=== PATIENT | male | born 2000 | race Caucasian/White ===

== ENCOUNTER 2021-11-24 21:43 | Emergency (ER) | payer MEDICAID ==
[2021-11-24] MEDS ORDERED: Sodium Chloride 0.9% 1000 ML 1,000 ML IV STA (22:09)
[2021-11-24] MEDS ORDERED: Zofran 4 MG/2 ML VIAL ONE (22:16)
--- NOTE | 2021-11-24 22:16 | ERPHSYRPT ---
- History of Present Illness Time Seen by Provider: 11/24/21 21:48 Source: patient Exam Limitations: no limitations Patient Subjective Stated Complaint: pt states "I missed a step and fell down 4 carpet steps and hit my head." Triage Nursing Assessment: pt ambulates to bed by self, pt alert and oriented x3, pt c/o headache and L sided rib pain after recent fall, pt is unknown of LOC, pt denies any other pain, shortness of breath. pt has 3 in abrasion located on lower back Physician History: 21 years old male with history of cerebral palsy, seizure disorder presented in the ER with chief complaint of fall. Patient reports he tripped while coming downstairs and fell hitting his left side of his chest against the rail and head against multiple stairs. No loss of consciousness. This happened prior to arrival. He is complaining of left-sided dull aching to sharp pain with taking deep breath. No shortness of breath otherwise. No abdominal pain nausea or vomiting. No numbness tingling or focal weakness. No extremity injuries. Also report having seizure earlier this morning with soreness all over. Occurred: just prior to arrival Reason for Fall: tripped Injuries/Pain Location: head, chest Loss of Consciousness: no loss of consciousness Quality: sharpness Severity of Pain-Max: moderate Severity of Pain-Current: moderate Modifying Factors: Worsens With: movement Associated Symptoms (Fall): chest pain, headache, muscle spasms, No back pain, No extremity injury, No neck pain, No ringing in ears, No seizures, No shortness of breath, No trouble walking, No vomiting, No vision changes Allergies/Adverse Reactions: amphetamine [From Adderall] Allergy (Mild, Verified 11/24/21 22:10) dextroamphetamine [From Adderall] Allergy (Mild, Verified 11/24/21 22:10) diazepam [From Valium] Allergy (Verified 11/24/21 22:10) gluten Allergy (Verified 11/24/21 22:10) methylphenidate Allergy (Verified 11/24/21 22:10) naproxen Allergy (Verified 11/24/21 22:10) Penicillins Allergy (Verified 11/24/21 22:10) ranitidine Allergy (Verified 11/24/21 22:10) Hx Tetanus, Diphtheria Vaccination/Date Given: Yes Hx Influenza Vaccination/Date Given: No Hx Pneumococcal Vaccination/Date Given: No Immunizations Up to Date: Yes Travel Risk - International Travel Have you traveled outside of the country in past 3 weeks: No - Coronavirus Screening Are you exhibiting any of the following symptoms?: No Close contact with a COVID-19 positive Pt in past 14-21 Days: No - Vaccine Status Have you recieved a Covid-19 vaccination: No - Review of Systems Constitutional: No Symptoms Eyes: No Symptoms Ears, Nose, & Throat: No Symptoms Respiratory: No Symptoms Cardiac: Chest Pain Abdominal/Gastrointestinal: No Symptoms Genitourinary Symptoms: No Symptoms Musculoskeletal: Fall Skin: Skin Lesions Neurological: Headache Psychological: No Symptoms Endocrine: No Symptoms Hematologic/Lymphatic: No Symptoms Immunological/Allergic: No Symptoms - Past Medical History Pertinent Past Medical History: Yes Neurological History: Seizures ENT History: No Pertinent History Cardiac History: No Pertinent History Respiratory History: No Pertinent History Endocrine Medical History: No Pertinent History Musculoskeletal History: No Pertinent History GI Medical History: No Pertinent History History: No Pertinent History Psycho-Social History: Anxiety, Depression Male Reproductive Disorders: No Pertinent History Other Medical History: psorsis, celiac disease - Past Surgical History Past Surgical History: Yes Neuro Surgical History: No Pertinent History Cardiac: No Pertinent History Respiratory: No Pertinent History Gastrointestinal: No Pertinent History Genitourinary: No Pertinent History Musculoskeletal: No Pertinent History Male Surgical History: No Pertinent History Other Surgical History: tendon stretch, hamstring stretches - Social History Smoking Status: Never smoker Exposure to second hand smoke: No Drug Use: marijuana Patient Lives Alone: No - Nursing Vital Signs Nursing Vital Signs: Initial Vital Signs Temperature 99.5 F 11/24/21 21:57 Pulse Rate 77 11/24/21 21:57 Respiratory Rate 16 11/24/21 21:57 Blood Pressure 103/69 11/24/21 21:57 O2 Sat by Pulse Oximetry 98 11/24/21 21:57 Pain Scale Pain Intensity 3 - Dewitt Coma Score Best Eye Response (Chandana): (4) open spontaneously Best Verbal Response (Chandana): (5) oriented Best Motor Response (Chandana): (6) obeys commands Chandana Total: 15 - Physical Exam General Appearance: no apparent distress, alert Head Injury: no evidence of injury, tenderness (Mild occipital), No Morel's Sign, No contusions Eye Exam: PERRL/EOMI, eyes nml inspection ENT Exam: airway nml, No evidence of ENT injury, No dental injury Neck Exam: supple, trachea midline, full range of motion, normal alignment, normal inspection Respiratory/Chest Exam: chest tenderness (Left lateral. No crepitus.), normal breath sounds, No respiratory distress Cardiovascular Exam: normal heart sounds, regular rate/rhythm Gastrointestinal Exam: soft, normal bowel sounds, No tenderness, No guarding Back Exam: normal inspection, normal range of motion, other (Abrasion on the left lower) Extremity Exam: normal inspection, normal range of motion, capillary refill <3 sec, pelvis stable Neurologic Exam: alert, oriented x 3, cooperative, tenoner operator II-XII nml as tested, normal mood/affect, sensation nml, No motor deficits Skin Exam: normal color SpO2 Interpretation: normal SpO2: 98 O2 Delivery: Room Air Ordered Tests: Active Orders 24 hr Category Date Time Status IV Insertion STAT Care 11/24/21 22:09 Active CERVICAL SPINE WO CONTRAST [CT] Stat Exams 11/24/21 22:09 Taken CHEST WITHOUT CONTRAST [CT] Stat Exams 11/24/21 22:09 Taken HEAD WITHOUT CONTRAST [CT] Stat Exams 11/24/21 22:09 Taken CBC W DIFF Stat Lab 11/24/21 22:47 Completed CK (IN-HOUSE) [CK-Creatinine Phosphokinase] Stat Lab 11/24/21 22:47 Completed CMP Stat Lab 11/24/21 22:47 Completed LIPASE Stat Lab 11/24/21 22:47 Completed UA W/RFX CULTURE Stat Lab 11/24/21 22:47 Completed Medication Summary Discontinued Medications Generic Name Dose Route Start Last Admin Trade Name Leigh PRN Reason Stop Dose Admin Sodium Chloride 1,000 mls @ 999 mls/hr 11/24/21 22:09 11/24/21 23:39 Sodium Chloride 0.9% 1000 Ml IV 11/24/21 23:09 Infused .Q1H1M STA Infusion Sodium Chloride Confirm 11/24/21 22:17 Sodium Chloride 0.9% 1000 Ml Administered 11/24/21 22:18 Dose 1,000 mls @ ud .ROUTE .STK-MED ONE Ondansetron HCl 4 mg 11/24/21 22:09 11/24/21 22:41 Ondansetron Hcl 4 Mg/2 Ml Vial IV 11/24/21 22:10 Not Given STAT ONE Ondansetron HCl Confirm 11/24/21 22:16 Ondansetron Hcl 4 Mg/2 Ml Vial Administered 11/24/21 22:17 Dose 4 mg .ROUTE .[facility]-MED ONE Lab/Rad Data: Laboratory Result Diagrams 11/24/21 22:47 11/24/21 22:47 Laboratory Results 11/24/21 11/24/21 11/24/21 Range/Units 22:47 22:47 22:47 WBC (4.0-10.5) x10^3/uL RBC (4.1-5.6) x10^6/uL Hgb (12.5-18.0) g/dL Hct (42-50) % MCV (78-100) fL MCH (26-32) pg MCHC (32-36) g/dL RDW (11.5-14.0) % Plt Count (150-450) x10^3/uL MPV (7.5-11.0) fL Gran % (36.0-66.0) % Immature Gran % (Auto) (0.00-0.4) % Nucleat RBC Rel Count (0.00-0.1) % Eos # (Auto) (0-0.5) x10^3/uL Immature Gran # (Auto) (0.00-0.03) x10^3u/L Absolute Lymphs (auto) (1.0-4.6) x10^3/uL Absolute Monos (auto) (0.0-1.3) x10^3/uL Absolute Nucleated RBC (0.00-0.01) x10^3u/L Lymphocytes % (24.0-44.0) % Monocytes % (0.0-12.0) % Eosinophils % (0.00-5.0) % Basophils % (0.0-0.4) % Absolute Granulocytes (1.4-6.9) x10^3/uL Basophils # (0-0.4) x10^3/uL Sodium 140 (137-145) mmol/L Potassium 3.8 (3.5-5.1) mmol/L Chloride 104 (98-107) mmol/L Carbon Dioxide 26 (22-30) mmol/L Anion Gap 14.4 (5-15) MEQ/L BUN 12 (9-20) mg/dL Creatinine 0.73 (0.66-1.25) mg/dL Estimated GFR > 60.0 ML/MIN Glucose 105 (74-106) mg/dL Calcium 9.6 (8.4-10.2) mg/dL Total Bilirubin 0.50 (0.2-1.3) mg/dL AST 20 (17-59) U/L ALT 10 (0-50) U/L Alkaline Phosphatase 61 (38-126) U/L Creatine Kinase 63 (55-170) U/L Serum Total Protein 7.8 (6.3-8.2) g/dL Albumin 5.0 (3.5-5.0) g/dL Lipase 65 (23-300) U/L Urinalys Dipstick Clnc MAIN LAB Urine Color YELLOW (YELLOW) Urine Appearance CLEAR (CLEAR) Urine pH 7.0 (5-6) Ur Specific [place] 1.020 (1.005-1.025) POC Urine Protein Conf NEGATIVE (Negative) Urine Ketones NEGATIVE (NEGATIVE) Urine Nitrite NEGATIVE (NEGATIVE) Urine Bilirubin NEGATIVE (NEGATIVE) Urine Urobilinogen 1 (0-1) mg/dL Urine Leukocytes NEGATIVE (NEGATIVE) Urine WBC (Auto) NONE (0-5) /HPF Urine RBC (Auto) NONE SEEN (0-2) /HPF U Epithel Cells (Auto) NONE (FEW) /HPF Urine Bacteria (Auto) NONE SEEN (NEGATIVE) /HPF Urine RBC NEGATIVE (0-5) Gaurav/ul Unidentified Crystals 2-5 (NEGATIVE) /HPF Urine Mucus (Auto) SLIGHT (NEGATIVE) /HPF Ur Culture Indicated? NO Urine Glucose NEGATIVE (NEGATIVE) mg/dL 11/24/21 Range/Units 22:47 WBC 5.9 (4.0-10.5) x10^3/uL RBC 5.07 (4.1-5.6) x10^6/uL Hgb 15.5 (12.5-18.0) g/dL Hct 44.9 (42-50) % MCV 88.6 (78-100) fL MCH 30.6 (26-32) pg MCHC 34.5 (32-36) g/dL RDW 12.1 (11.5-14.0) % Plt Count 255 (150-450) x10^3/uL MPV 9.7 (7.5-11.0) fL Gran % 48.8 (36.0-66.0) % Immature Gran % (Auto) 0.2 (0.00-0.4) % Nucleat RBC Rel Count 0.0 (0.00-0.1) % Eos # (Auto) 0.13 (0-0.5) x10^3/uL Immature Gran # (Auto) 0.01 (0.00-0.03) x10^3u/L Absolute Lymphs (auto) 2.25 (1.0-4.6) x10^3/uL Absolute Monos (auto) 0.60 (0.0-1.3) x10^3/uL Absolute Nucleated RBC 0.00 (0.00-0.01) x10^3u/L Lymphocytes % 38.1 (24.0-44.0) % Monocytes % 10.2 (0.0-12.0) % Eosinophils % 2.2 (0.00-5.0) % Basophils % 0.5 (0.0-0.4) % Absolute Granulocytes 2.89 (1.4-6.9) x10^3/uL Basophils # 0.03 (0-0.4) x10^3/uL Sodium (137-145) mmol/L Potassium (3.5-5.1) mmol/L Chloride (98-107) mmol/L Carbon Dioxide (22-30) mmol/L Anion Gap (5-15) MEQ/L BUN (9-20) mg/dL Creatinine (0.66-1.25) mg/dL Estimated GFR ML/MIN Glucose (74-106) mg/dL Calcium (8.4-10.2) mg/dL Total Bilirubin (0.2-1.3) mg/dL AST (17-59) U/L ALT (0-50) U/L Alkaline Phosphatase (38-126) U/L Creatine Kinase (55-170) U/L Serum Total Protein (6.3-8.2) g/dL Albumin (3.5-5.0) g/dL Lipase (23-300) U/L Urinalys Dipstick Clnc Urine Color (YELLOW) Urine Appearance (CLEAR) Urine pH (5-6) Ur Specific [place] (1.005-1.025) POC Urine Protein Conf (Negative) Urine Ketones (NEGATIVE) Urine Nitrite (NEGATIVE) Urine Bilirubin (NEGATIVE) Urine Urobilinogen (0-1) mg/dL Urine Leukocytes (NEGATIVE) Urine WBC (Auto) (0-5) /HPF Urine RBC (Auto) (0-2) /HPF U Epithel Cells (Auto) (FEW) /HPF Urine Bacteria (Auto) (NEGATIVE) /HPF Urine RBC (0-5) Gaurav/ul Unidentified Crystals (NEGATIVE) /HPF Urine Mucus (Auto) (NEGATIVE) /HPF Ur Culture Indicated? Urine Glucose (NEGATIVE) mg/dL - Progress Progress: improved Progress Note: 11/25/21 00:14 Given fluids, feeling better on reevaluation. Refused to have any pain medication. Negative CT head cervical spine and chest. Unremarkable lab work. It was a mechanical fall. Do not think needs any further work-up and is stable for discharge with outpatient follow-up. Counseled pt/family regarding: lab results, diagnosis, need for follow-up, rad results - Departure Departure Disposition: Home Clinical Impression: Fall, Chest wall contusion, Contusion of occipital region of scalp Condition: Stable Critical Care Time: No Referrals: DOCTOR,NO FAMILY [Primary Care Provider] - Follow up/PCP as directed CRISTINA MIRANDA [ACTIVE STAFF] - Follow Up with PCP/3 days Instructions: Head Injury Observation (DC) Additional Instructions: Take Tylenol/ibuprofen as needed. Follow-up with your primary care physician for reevaluation. Return to ER for any worsening.
[2021-11-24] MEDS ORDERED: Sodium Chloride 0.9% 1000 ML 1,000 ML ONE (22:17)
[2021-11-24] MEDS: Zofran 4 MG/2 ML VIAL IV ONE ×2 (22:28→22:41)
[2021-11-24 22:50] LABS: Absolute Neutrophil Ct (ANC) 2.89 x10^3/uL (1.4-6.9); Basophil (Absolute #) 0.03 x10^3/uL (0-0.4); Eosinophil % 2.2 % (0.00-5.0); Eosinophil (Absolute #) 0.13 x10^3/uL (0-0.5); Hematocrit 44.9 % (42-50); Hemoglobin 15.5 g/dL (12.5-18.0); Lymphocyte (Absolute #) 2.25 x10^3/uL (1.0-4.6); Lymphocytes % 38.1 % (24.0-44.0); Mean Cell Volume 88.6 fL (78-100); Mean Corpuscular Hemoglobin 30.6 pg (26-32); Mean Corpuscular Hgb Concent. 34.5 g/dL (32-36); Mean Platelet Volume 9.7 fL (7.5-11.0); Monocytes % 10.2 % (0.0-12.0); Neutrophil % 48.8 % (36.0-66.0); Platelet Count 255 x10^3/uL (150-450); Red Blood Count 5.07 x10^6/uL (4.1-5.6); Red Cell Distribution Width 12.1 % (11.5-14.0); White Blood Count 5.9 x10^3/uL (4.0-10.5)
[2021-11-24 23:05] LABS: ALKALINE PHOSPHATASE 61 U/L (38-126); ANION GAP 14.4 MEQ/L (5-15); BLOOD UREA NITROGEN 12 mg/dL (9-20); CHLORIDE 104 mmol/L (98-107); Calcium 9.6 mg/dL (8.4-10.2); Carbon Dioxide 26 mmol/L (22-30); Creatinine 1 0.73 mg/dL (0.66-1.25); EST GLOMERULAR FILTRATION RATE > 60.0 ML/MIN; Glucose 105 mg/dL (74-106); LIPASE 65 U/L (23-300); Potassium 3.8 mmol/L (3.5-5.1); SGOT/AST 20 U/L (17-59); SGPT/ALT 10 U/L (0-50); SODIUM 140 mmol/L (137-145); Total Protein 7.8 g/dL (6.3-8.2)
[2021-11-24 23:23] LABS: Mucus SLIGHT /HPF (NEGATIVE)
[2021-11-24 23:24] LABS: Appearance CLEAR (CLEAR); Bacteria NONE SEEN /HPF (NEGATIVE); Bilirubin NEGATIVE (NEGATIVE); Dipstick done @ ? MAIN LAB; Glucose NEGATIVE (NEGATIVE); Ketones NEGATIVE (NEGATIVE); Nitrite NEGATIVE (NEGATIVE); Protein,Urine Dip NEGATIVE (Negative); RBC NEGATIVE Ery/ul (0-5); RBC NONE SEEN /HPF (0-2); Urine Cultured Indicated? NO; Urobilinogen 1 mg/dL (0-1)
[2021-11-25 00:11] VITALS: BP 106/63
[2021-11-25 00:16] VITALS: O2SAT 98
[2021-11-25 00:27] VITALS: PULSE 69
--- NOTE | 2021-11-25 08:43 | XRAY ---
Indication: Pain. Posterior head injury. Multiple contiguous axial images obtained through the head without contrast. Comparison: None Normal appearing brain parenchyma, ventricles, and bony calvarium. Visualized paranasal sinuses and mastoid air cells are clear. Impression: Normal CT head without contrast exam. Comment: Preliminary interpretation made by [facility]. No critical discrepancy.
--- NOTE | 2021-11-25 08:44 | XRAY ---
Indication: Pain. Posterior head injury. Multiple contiguous axial images obtained through the cervical spine. Sagittal and coronal reformatted images obtained. Comparison: None Axial images negative for acute fracture, suspicious bony lesions, or spinal canal stenosis. Sagittal and coronal reformatted images demonstrate normal alignment with vertebral body heights/disc spaces maintained. No acute compression fracture, subluxation, or jumped facet. Normal appearing query cervical junction. Visualized noncontrasted soft tissues unremarkable. CT head and CT chest reported separately. Impression: Normal CT cervical spine. Comment: Preliminary interpretation made by [facility]. No critical discrepancy.
--- NOTE | 2021-11-25 08:45 | XRAY ---
Indication: Left upper chest pain following fall. Trouble breathing. Multiple contiguous axial images obtained through the chest without contrast. Comparison: None Lungs are inflated and clear. Heart not enlarged. Aorta is normal in course and caliber. No pathologic mediastinal lymphadenopathy. Bony thorax intact. Limited upper abdomen unremarkable. Impression: Normal CT chest without contrast exam. Comment: Preliminary interpretation made by [facility]. No critical discrepancy.
== END 2021-11-25 00:35 | disposition home or self-care (01) ==
LOC: ED 21:43
DX: S20.212A Contusion of left front wall of thorax, initial encounter (principal); S00.03XA Contusion of scalp, initial encounter; W10.9XXA Fall (on) (from) unspecified stairs and steps, initial encounter; R07.9 Chest pain, unspecified; R51.9 Headache, unspecified; Z28.310 Unvaccinated for COVID-19
CPT/HCPCS: 36000; 36415; 70450; 71250; 72125; 80053; 81015; 82550; 83690; 85025; 96360; 99284; J2405

== ENCOUNTER 2022-04-02 12:48 | Emergency (ER) | payer OTHER ==
--- NOTE | 2022-04-02 13:25 | ERPHSYRPT ---
- History of Present Illness Historian: patient Exam Limitations: other (Poor historian) Patient Subjective Stated Complaint: PT states "[facility] and they said I have a virus of some sort. They told me that if it gets worse that I need to come to ed and if I wanted a work note I needed to come here. I do need a work note." Triage Nursing Assessment: PT presented alert and oriented X 3, skin wpd. tp ambulates with an upright steady gait able to speak in clear full sentences pt in no apparent respiratory distress. Physician History: 21 yo wm w N/V/christelle-umbilical pain x 6 days. Pain is currently a 2 on scale but has been up to a 9. He denies hematemesis/diarrhea/melena/hematochezia/dysuria/hematuria. Pt went to the [facility] yesterday and was told to come to the ER if his pain progressed. He has a mild cough/coryza. Nothing makes the pain better or worse. Timing/Duration: other (6 days) Quality: burning, dullness Abdominal Pain Onset Location: periumbilical Pain Radiation: no radiation Severity of Pain-Max: severe Severity of Pain-Current: mild Modifying Factors: Improves With: nothing Associated Symptoms: denies symptoms, nausea, vomiting Allergies/Adverse Reactions: amphetamine [From Adderall] Allergy (Mild, Verified 11/24/21 22:10) dextroamphetamine [From Adderall] Allergy (Mild, Verified 11/24/21 22:10) diazepam [From Valium] Allergy (Verified 11/24/21 22:10) gluten Allergy (Verified 11/24/21 22:10) methylphenidate Allergy (Verified 11/24/21 22:10) naproxen Allergy (Verified 11/24/21 22:10) Penicillins Allergy (Verified 11/24/21 22:10) ranitidine Allergy (Verified 11/24/21 22:10) Home Medications: Escitalopram Oxalate 10 mg PO DAILY 04/02/22 [History] Hx Tetanus, Diphtheria Vaccination/Date Given: Yes Hx Influenza Vaccination/Date Given: No Hx Pneumococcal Vaccination/Date Given: No Immunizations Up to Date: Yes Travel Risk - International Travel Have you traveled outside of the country in past 3 weeks: No - Coronavirus Screening Are you exhibiting any of the following symptoms?: Yes Symptoms: Cough: New Onset Close contact with a COVID-19 positive Pt in past 14-21 Days: No - Vaccine Status Have you recieved a Covid-19 vaccination: No - Review of Systems Constitutional: No Symptoms, Fever Eyes: No Symptoms Ears, Nose, & Throat: No Symptoms, Nose Congestion, Nose Discharge Respiratory: Cough Cardiac: No Symptoms Abdominal/Gastrointestinal: No Symptoms, Abdominal Pain, Nausea, Vomiting Genitourinary Symptoms: No Symptoms Musculoskeletal: No Symptoms Skin: No Symptoms Neurological: No Symptoms Psychological: No Symptoms Endocrine: No Symptoms Hematologic/Lymphatic: No Symptoms Immunological/Allergic: No Symptoms - Past Medical History Pertinent Past Medical History: Yes Neurological History: Seizures ENT History: No Pertinent History Cardiac History: No Pertinent History Respiratory History: No Pertinent History Endocrine Medical History: No Pertinent History Musculoskeletal History: No Pertinent History GI Medical History: No Pertinent History History: No Pertinent History Psycho-Social History: Anxiety, Depression Male Reproductive Disorders: No Pertinent History Other Medical History: psorsis, celiac disease - Past Surgical History Past Surgical History: Yes Neuro Surgical History: No Pertinent History Cardiac: No Pertinent History Respiratory: No Pertinent History Gastrointestinal: No Pertinent History Genitourinary: No Pertinent History Musculoskeletal: No Pertinent History Male Surgical History: No Pertinent History Other Surgical History: tendon stretch, hamstring stretches - Social History Smoking Status: Never smoker Exposure to second hand smoke: No Drug Use: marijuana Patient Lives Alone: No Significant Family History: no pertinent family hx - Nursing Vital Signs Nursing Vital Signs: Initial Vital Signs Temperature 98.3 F 04/02/22 12:59 Pulse Rate 90 04/02/22 12:59 Respiratory Rate 20 04/02/22 12:59 Blood Pressure 122/79 04/02/22 12:59 O2 Sat by Pulse Oximetry 100 04/02/22 12:59 Pain Scale Pain Intensity 0 WNL - Physical Exam General Appearance: no apparent distress Eye Exam: PERRL/EOMI, eyes nml inspection Ears, Nose, Throat Exam: normal ENT inspection, TMs normal, pharynx normal, moist mucous membranes Neck Exam: normal inspection, non-tender, supple, full range of motion, No meningismus, No mass, No Brudzinski, No Kernig's, No carotid bruit Respiratory Exam: normal breath sounds, lungs clear, airway intact Cardiovascular Exam: regular rate/rhythm, normal heart sounds, normal peripheral pulses, capillary refill <2 sec, No murmur Gastrointestinal/Abdomen Exam: soft, normal bowel sounds, No tenderness Back Exam: normal inspection, normal range of motion, No CVA tenderness, No vertebral tenderness Extremity Exam: normal inspection, normal range of motion Neurologic Exam: alert, oriented x 3, cooperative, managing broker II-XII nml as tested, normal mood/affect, nml cerebellar function, nml station & gait, sensation nml, No motor deficits, No sensory deficit Skin Exam: normal color, warm, dry Lymphatic Exam: No adenopathy SpO2 Interpretation: normal SpO2: 100 O2 Delivery: Room Air - Course Nursing assessment & vital signs reviewed: Yes Ordered Tests: Active Orders 24 hr Category Date Time Status AMYLASE Stat Lab 04/02/22 13:40 Completed CBC W DIFF Stat Lab 04/02/22 13:40 Completed CMP Stat Lab 04/02/22 13:40 Completed LIPASE Stat Lab 04/02/22 13:40 Completed UA W/RFX CULTURE Stat Lab 04/02/22 13:24 Completed Lab/Rad Data: Laboratory Result Diagrams 04/02/22 13:40 04/02/22 13:40 Laboratory Results 04/02/22 04/02/22 04/02/22 Range/Units 13:40 13:40 13:40 WBC 4.1 (4.0-10.5) x10^3/uL RBC 4.97 (4.1-5.6) x10^6/uL Hgb 14.8 (12.5-18.0) g/dL Hct 43.9 (42-50) % MCV 88.3 (78-100) fL MCH 29.8 (26-32) pg MCHC 33.7 (32-36) g/dL RDW 12.7 (11.5-14.0) % Plt Count 230 (150-450) x10^3/uL MPV 9.7 (7.5-11.0) fL Gran % 52.9 (36.0-66.0) % Immature Gran % (Auto) 0.2 (0.00-0.4) % Nucleat RBC Rel Count 0.0 (0.00-0.1) % Eos # (Auto) 0.04 (0-0.5) x10^3/uL Immature Gran # (Auto) 0.01 (0.00-0.03) x10^3u/L Absolute Lymphs (auto) 1.41 (1.0-4.6) x10^3/uL Absolute Monos (auto) 0.44 (0.0-1.3) x10^3/uL Absolute Nucleated RBC 0.00 (0.00-0.01) x10^3u/L Lymphocytes % 34.6 (24.0-44.0) % Monocytes % 10.8 (0.0-12.0) % Eosinophils % 1.0 (0.00-5.0) % Basophils % 0.5 (0.0-0.4) % Absolute Granulocytes 2.15 (1.4-6.9) x10^3/uL Basophils # 0.02 (0-0.4) x10^3/uL Sodium 141 (137-145) mmol/L Potassium 3.7 (3.5-5.1) mmol/L Chloride 108 H (98-107) mmol/L Carbon Dioxide 24 (22-30) mmol/L Anion Gap 13.7 (5-15) MEQ/L BUN 11 (9-20) mg/dL Creatinine 0.60 L (0.66-1.25) mg/dL Estimated GFR > 60.0 ML/MIN Glucose 97 (74-106) mg/dL Calcium 9.2 (8.4-10.2) mg/dL Total Bilirubin 0.70 (0.2-1.3) mg/dL AST 18 (17-59) U/L ALT 12 (0-50) U/L Alkaline Phosphatase 70 (38-126) U/L Serum Total Protein 7.9 (6.3-8.2) g/dL Albumin 4.9 (3.5-5.0) g/dL Amylase 59 (30-110) U/L Lipase 40 (23-300) U/L Urinalys Dipstick Clnc Urine Color (YELLOW) Urine Appearance (CLEAR) Urine pH (5-6) Ur Specific [place] (1.005-1.025) POC Urine Protein Conf (Negative) Urine Ketones (NEGATIVE) Urine Nitrite (NEGATIVE) Urine Bilirubin (NEGATIVE) Urine Urobilinogen (0-1) mg/dL Urine Leukocytes (NEGATIVE) Urine WBC (Auto) (0-5) /HPF Urine RBC (Auto) (0-2) /HPF U Epithel Cells (Auto) (FEW) /HPF Urine Bacteria (Auto) Urine RBC (0-5) Gaurav/ul Urine Mucus (Auto) (NEGATIVE) /HPF Ur Culture Indicated? Urine Glucose (NEGATIVE) mg/dL Influenza Type A Ag NEGATIVE (NEGATIVE) Influenza Type B Ag NEGATIVE (NEGATIVE) RSV (PCR) NEGATIVE (Negative) SARS-CoV-2 (PCR) NEGATIVE (NEGATIVE) 04/02/22 Range/Units 13:24 WBC (4.0-10.5) x10^3/uL RBC (4.1-5.6) x10^6/uL Hgb (12.5-18.0) g/dL Hct (42-50) % MCV (78-100) fL MCH (26-32) pg MCHC (32-36) g/dL RDW (11.5-14.0) % Plt Count (150-450) x10^3/uL MPV (7.5-11.0) fL Gran % (36.0-66.0) % Immature Gran % (Auto) (0.00-0.4) % Nucleat RBC Rel Count (0.00-0.1) % Eos # (Auto) (0-0.5) x10^3/uL Immature Gran # (Auto) (0.00-0.03) x10^3u/L Absolute Lymphs (auto) (1.0-4.6) x10^3/uL Absolute Monos (auto) (0.0-1.3) x10^3/uL Absolute Nucleated RBC (0.00-0.01) x10^3u/L Lymphocytes % (24.0-44.0) % Monocytes % (0.0-12.0) % Eosinophils % (0.00-5.0) % Basophils % (0.0-0.4) % Absolute Granulocytes (1.4-6.9) x10^3/uL Basophils # (0-0.4) x10^3/uL Sodium (137-145) mmol/L Potassium (3.5-5.1) mmol/L Chloride (98-107) mmol/L Carbon Dioxide (22-30) mmol/L Anion Gap (5-15) MEQ/L BUN (9-20) mg/dL Creatinine (0.66-1.25) mg/dL Estimated GFR ML/MIN Glucose (74-106) mg/dL Calcium (8.4-10.2) mg/dL Total Bilirubin (0.2-1.3) mg/dL AST (17-59) U/L ALT (0-50) U/L Alkaline Phosphatase (38-126) U/L Serum Total Protein (6.3-8.2) g/dL Albumin (3.5-5.0) g/dL Amylase (30-110) U/L Lipase (23-300) U/L Urinalys Dipstick Clnc MAIN LAB Urine Color YELLOW (YELLOW) Urine Appearance CLEAR (CLEAR) Urine pH 6.0 (5-6) Ur Specific [place] 1.025 (1.005-1.025) POC Urine Protein Conf NEGATIVE (Negative) Urine Ketones LARGE-80 (NEGATIVE) Urine Nitrite NEGATIVE (NEGATIVE) Urine Bilirubin SMALL (NEGATIVE) Urine Urobilinogen 0.2 (0-1) mg/dL Urine Leukocytes NEGATIVE (NEGATIVE) Urine WBC (Auto) 0-2 (0-5) /HPF Urine RBC (Auto) 0-2 (0-2) /HPF U Epithel Cells (Auto) RARE (FEW) /HPF Urine Bacteria (Auto) Not Reportable Urine RBC NEGATIVE (0-5) Gaurav/ul Urine Mucus (Auto) SLIGHT (NEGATIVE) /HPF Ur Culture Indicated? NO Urine Glucose NEGATIVE (NEGATIVE) mg/dL Influenza Type A Ag (NEGATIVE) Influenza Type B Ag (NEGATIVE) RSV (PCR) (Negative) SARS-CoV-2 (PCR) (NEGATIVE) - Progress Counseled pt/family regarding: lab results, diagnosis, need for follow-up - Departure Departure Disposition: Home Clinical Impression: Viral illness Condition: Stable Critical Care Time: No Referrals: DOCTOR,NO FAMILY [NON-STAFF PHY W/O PRIVILEGES] - Follow up/PCP as directed Instructions: Nausea and Vomiting, Adult (DC) Additional Instructions: Fluids Zofran for nausea/vomiting Return to ER for increasing or unremitting abdominal pain or inability to hold down fluids Forms: Work/School Release Form Prescriptions: Ondansetron ODT 4 MG [Zofran Odt 4 mg] 4 mg PO Q6H PRN PRN #10 tablet PRN Reason: Nausea
[2022-04-02 13:50] LABS: Appearance CLEAR (CLEAR); Bilirubin SMALL (NEGATIVE); Glucose NEGATIVE (NEGATIVE); Ketones LARGE-80 (NEGATIVE)
[2022-04-02 13:51] LABS: Dipstick done @ ? MAIN LAB; Nitrite NEGATIVE (NEGATIVE); Protein,Urine Dip NEGATIVE (Negative); RBC NEGATIVE Ery/ul (0-5); Specific Gravity 1.025 (1.005-1.025); Urobilinogen 0.2 mg/dL (0-1)
[2022-04-02 13:55] LABS: Epithelial Cells RARE /HPF (FEW); Mucus SLIGHT /HPF (NEGATIVE); RBC 0-2 /HPF (0-2); WBC 0-2 /HPF (0-5)
[2022-04-02 13:56] LABS: Urine Cultured Indicated? NO
[2022-04-02 13:58] LABS: Absolute Neutrophil Ct (ANC) 2.15 x10^3/uL (1.4-6.9); Basophil (Absolute #) 0.02 x10^3/uL (0-0.4); Eosinophil (Absolute #) 0.04 x10^3/uL (0-0.5); Hematocrit 43.9 % (42-50); Hemoglobin 14.8 g/dL (12.5-18.0); Lymphocyte (Absolute #) 1.41 x10^3/uL (1.0-4.6); Lymphocytes % 34.6 % (24.0-44.0); Mean Cell Volume 88.3 fL (78-100); Mean Corpuscular Hemoglobin 29.8 pg (26-32); Mean Corpuscular Hgb Concent. 33.7 g/dL (32-36); Mean Platelet Volume 9.7 fL (7.5-11.0); Monocyte (Absolute #) 0.44 x10^3/uL (0.0-1.3); Monocytes % 10.8 % (0.0-12.0); Neutrophil % 52.9 % (36.0-66.0); Platelet Count 230 x10^3/uL (150-450); Red Blood Count 4.97 x10^6/uL (4.1-5.6); Red Cell Distribution Width 12.7 % (11.5-14.0); White Blood Count 4.1 x10^3/uL (4.0-10.5)
[2022-04-02 14:16] LABS: ALBUMIN 4.9 g/dL (3.5-5.0); ALKALINE PHOSPHATASE 70 U/L (38-126); AMYLASE 59 U/L (30-110); ANION GAP 13.7 MEQ/L (5-15); BLOOD UREA NITROGEN 11 mg/dL (9-20); CHLORIDE 108 mmol/L (98-107); Calcium 9.2 mg/dL (8.4-10.2); Carbon Dioxide 24 mmol/L (22-30); EST GLOMERULAR FILTRATION RATE > 60.0 ML/MIN; Glucose 97 mg/dL (74-106); LIPASE 40 U/L (23-300); Potassium 3.7 mmol/L (3.5-5.1); SGOT/AST 18 U/L (17-59); SGPT/ALT 12 U/L (0-50); SODIUM 141 mmol/L (137-145); Total Protein 7.9 g/dL (6.3-8.2)
[2022-04-02 14:22] VITALS: BP 110/73; PULSE 107
[2022-04-02 14:35] LABS: INFLUENZA A NEGATIVE (NEGATIVE); INFLUENZA B NEGATIVE (NEGATIVE); RESPIRATORY SYNCTIAL VIRUS NEGATIVE (Negative); SARS-CoV-2 Xpert Express NEGATIVE (NEGATIVE)
[2022-04-02 15:00] VITALS: O2SAT 100
== END 2022-04-02 15:21 | disposition home or self-care (01) ==
LOC: ED 12:48
DX: B34.9 Viral infection, unspecified (principal); R10.33 Periumbilical pain; R11.2 Nausea with vomiting, unspecified
CPT/HCPCS: 0241U; 36415; 80053; 81015; 82150; 83690; 85025; 99282

== ENCOUNTER 2022-09-09 19:46 | Emergency (ER) | payer OTHER ==
--- NOTE | 2022-09-09 20:09 | ERPHSYRPT ---
- History of Present Illness Time Seen by Provider: 09/09/22 20:09 Source: patient Exam Limitations: no limitations Physician History: Patient reports feeling very sad since moving here from [place] 1 year ago Was taking Lexapro w/ some improvement, but stopped several months ago Not attending psychotherapy. Endorses feeling depressed or having little interest in doing things. Denies suicidal ideation or thoughts of self harm Timing/Duration: gradual onset Severity of Symptoms-Max: severe Severity of Symptoms-Current: severe Context related to: living circumstances Associated Symptoms: depressed, No injury, No insomnia, No paranoid, No suicidal ideation Previous symptoms: same symptoms as today Allergies/Adverse Reactions: amphetamine [From Adderall] Allergy (Mild, Verified 09/09/22 19:53) dextroamphetamine [From Adderall] Allergy (Mild, Verified 09/09/22 19:53) diazepam [From Valium] Allergy (Verified 09/09/22 19:53) gluten Allergy (Verified 09/09/22 19:53) methylphenidate Allergy (Verified 09/09/22 19:53) naproxen Allergy (Verified 09/09/22 19:53) ondansetron [From Zofran] Allergy (Verified 09/09/22 19:53) Penicillins Allergy (Verified 09/09/22 19:53) ranitidine Allergy (Verified 09/09/22 19:53) Home Medications: Levetiracetam 500 MG/5 ML [Keppra 500 MG/5 ML] 500 mg PO DAILY 09/09/22 [History] Phenytoin Sod Extended 100 mg* [Dilantin 100 MG] 400 mg PO DAILY 09/09/22 [History] Hx Tetanus, Diphtheria Vaccination/Date Given: Yes Hx Influenza Vaccination/Date Given: No Hx Pneumococcal Vaccination/Date Given: No Travel Risk - Vaccine Status Have you recieved a Covid-19 vaccination: No - Past Medical History Pertinent Past Medical History: Yes Neurological History: Seizures ENT History: No Pertinent History Cardiac History: No Pertinent History Respiratory History: No Pertinent History Endocrine Medical History: No Pertinent History Musculoskeletal History: No Pertinent History GI Medical History: No Pertinent History History: No Pertinent History Psycho-Social History: Anxiety, Depression Male Reproductive Disorders: No Pertinent History Other Medical History: psorsis, celiac disease - Past Surgical History Past Surgical History: Yes Neuro Surgical History: No Pertinent History Cardiac: No Pertinent History Respiratory: No Pertinent History Gastrointestinal: No Pertinent History Genitourinary: No Pertinent History Musculoskeletal: No Pertinent History Male Surgical History: No Pertinent History Other Surgical History: tendon stretch, hamstring stretches - Social History Smoking Status: Never smoker Exposure to second hand smoke: No Drug Use: marijuana Patient Lives Alone: No Significant Family History: no pertinent family hx - Review of Systems Constitutional: No Symptoms Eyes: No Symptoms Ears, Nose, & Throat: No Symptoms Respiratory: No Symptoms Cardiac: No Symptoms Abdominal/Gastrointestinal: No Symptoms Genitourinary Symptoms: No Symptoms Musculoskeletal: No Symptoms Skin: No Symptoms Neurological: No Symptoms Psychological: Anxiety, Depression, No Suicidal Ideations All Other Systems: Reviewed and Negative - Nursing Vital Signs Nursing Vital Signs: Initial Vital Signs Temperature 97.0 F 09/09/22 20:02 Pulse Rate 104 H 09/09/22 20:02 Respiratory Rate 20 09/09/22 20:02 Blood Pressure 146/85 09/09/22 20:02 O2 Sat by Pulse Oximetry 99 09/09/22 20:02 Pain Scale Pain Intensity 0 - Physical Exam General Appearance: no apparent distress Eyes, Ears, Nose, Throat Exam: normal ENT inspection Neck Exam: normal inspection Respiratory Exam: normal breath sounds Cardiovascular Exam: normal heart sounds, capillary refill <2 sec Extremities Exam: normal inspection Current Suicidality: denies suicide plan Neurological Exam: alert, oriented x 3, depressed affect Appearance: appropriate appearance, appropriate insight, neat, no memory impairment Behavior/Eye Contact/Speech: alert & cooperative, normal speech Thoughts/Hallucinations: normal thought pattern, no apparent hallucination Skin Exam: normal color, warm, dry SpO2 Interpretation: normal O2 Delivery: Room Air - Course Nursing assessment & vital signs reviewed: Yes Ordered Tests: Active Orders 24 hr Category Date Time Status Psychiatric Consult STAT Cons 09/09/22 20:22 Active CBC W DIFF Stat Lab 09/09/22 20:29 Completed CMP Stat Lab 09/09/22 20:29 Completed ETHYL ALCOHOL Stat Lab 09/09/22 20:29 Completed Urine Triage Profile Stat Lab 09/09/22 20:29 Completed Medication Summary Generic Name Dose Route Start Last Admin Trade Name Freq PRN Reason Stop Dose Admin Aripiprazole 15 mg 09/09/22 22:00 Aripiprazole 10 Mg Tablet PO 10/09/22 21:59 HS INGRID Lab/Rad Data: Laboratory Result Diagrams 09/09/22 20:29 09/09/22 20:29 Laboratory Results 09/09/22 09/09/22 09/09/22 Range/Units 20:29 20:29 20:29 WBC 9.2 (4.0-10.5) x10^3/uL RBC 5.30 (4.1-5.6) x10^6/uL Hgb 15.8 (12.5-18.0) g/dL Hct 46.3 (42-50) % MCV 87.4 (78-100) fL MCH 29.8 (26-32) pg MCHC 34.1 (32-36) g/dL RDW 12.1 (11.5-14.0) % Plt Count 264 (150-450) x10^3/uL MPV 9.8 (7.5-11.0) fL Gran % 80.3 H (36.0-66.0) % Immature Gran % (Auto) 0.2 (0.00-0.4) % Nucleat RBC Rel Count 0.0 (0.00-0.1) % Eos # (Auto) 0.01 (0-0.5) x10^3/uL Immature Gran # (Auto) 0.02 (0.00-0.03) x10^3u/L Absolute Lymphs (auto) 1.00 (1.0-4.6) x10^3/uL Absolute Monos (auto) 0.76 (0.0-1.3) x10^3/uL Absolute Nucleated RBC 0.00 (0.00-0.01) x10^3u/L Lymphocytes % 10.9 L (24.0-44.0) % Monocytes % 8.3 (0.0-12.0) % Eosinophils % 0.1 (0.00-5.0) % Basophils % 0.2 (0.0-0.4) % Absolute Granulocytes 7.37 H (1.4-6.9) x10^3/uL Basophils # 0.02 (0-0.4) x10^3/uL Sodium 142 (137-145) mmol/L Potassium 3.8 (3.5-5.1) mmol/L Chloride 104 (98-107) mmol/L Carbon Dioxide 25 (22-30) mmol/L Anion Gap 16.8 H (5-15) MEQ/L BUN 11 (9-20) mg/dL Creatinine 0.62 L (0.66-1.25) mg/dL Estimated GFR > 60.0 ML/MIN Glucose 114 H (74-106) mg/dL Calcium 9.6 (8.4-10.2) mg/dL Total Bilirubin 0.70 (0.2-1.3) mg/dL AST 26 (17-59) U/L ALT 20 (0-50) U/L Alkaline Phosphatase 94 (38-126) U/L Serum Total Protein 8.6 H (6.3-8.2) g/dL Albumin 5.1 H (3.5-5.0) g/dL Urine Opiates Level NEGATIVE (NEGATIVE) Ur Methadone NEGATIVE (NEGATIVE) Urine Barbiturates NEGATIVE (NEGATIVE) Ur Phencyclidine (PCP) NEGATIVE (NEGATIVE) Urine Amphetamine NEGATIVE (NEGATIVE) Urine Cocaine NEGATIVE (NEGATIVE) Urine Marijuana (THC) POSITIVE (NEGATIVE) Ethyl Alcohol < 10 (0-10) mg/dL - Progress Progress Note: 09/09/22 22:51 Safety plan created w/ telepsych consult. Will start Abilify 15mg QD and he will f/u w/ [facility] outpatient. Discussed with Dr.: Other (Denisha Smith) Counseled pt/family regarding: lab results, diagnosis, need for follow-up Medical Desision Making - Discussion of managment Care discussed with:: specialist Agreed on:: need for follow-up - Diagnostic Testing Diagnostic test were ordered, analyzed, and reviewed by me: Yes Radiological Interpretation: Reviewed by me - Risk of complications The pt has a mod risk of morbidity or mortality based on: Need for prescription drug management - Departure Departure Disposition: Home Clinical Impression: Persistent sadness, Depression with anxiety, Family history of bipolar disorder Condition: Good Critical Care Time: No Referrals: MULUGETA BUCK MD [Primary Care Provider] - Follow up/PCP as directed Instructions: Depression, Adult (DC) Prescriptions: ARIPiprazole [Abilify Mycite] 15 mg PO DAILY 30 Days #30
[2022-09-09 20:18] VITALS: O2SAT 99
[2022-09-09 20:31] LABS: Absolute Neutrophil Ct (ANC) 7.37 x10^3/uL (1.4-6.9); BASOPHIL % 0.2 % (0.0-0.4); Basophil (Absolute #) 0.02 x10^3/uL (0-0.4); Eosinophil % 0.1 % (0.00-5.0); Eosinophil (Absolute #) 0.01 x10^3/uL (0-0.5); Hematocrit 46.3 % (42-50); Hemoglobin 15.8 g/dL (12.5-18.0); IMMATURE GRAN # 0.02 x10^3u/L (0.00-0.03); IMMATURE GRAN % 0.2 % (0.00-0.4); Lymphocytes % 10.9 % (24.0-44.0); Mean Cell Volume 87.4 fL (78-100); Mean Corpuscular Hemoglobin 29.8 pg (26-32); Mean Corpuscular Hgb Concent. 34.1 g/dL (32-36); Mean Platelet Volume 9.8 fL (7.5-11.0); Monocyte (Absolute #) 0.76 x10^3/uL (0.0-1.3); Monocytes % 8.3 % (0.0-12.0); Neutrophil % 80.3 % (36.0-66.0); Platelet Count 264 x10^3/uL (150-450); Red Cell Distribution Width 12.1 % (11.5-14.0); White Blood Count 9.2 x10^3/uL (4.0-10.5)
[2022-09-09 20:38] LABS: ALBUMIN 5.1 g/dL (3.5-5.0); ALKALINE PHOSPHATASE 94 U/L (38-126); ANION GAP 16.8 MEQ/L (5-15); BLOOD UREA NITROGEN 11 mg/dL (9-20); CHLORIDE 104 mmol/L (98-107); Calcium 9.6 mg/dL (8.4-10.2); Carbon Dioxide 25 mmol/L (22-30); Creatinine 1 0.62 mg/dL (0.66-1.25); EST GLOMERULAR FILTRATION RATE > 60.0 ML/MIN; ETHYL ALCOHOL < 10 mg/dL (0-10); Glucose 114 mg/dL (74-106); Potassium 3.8 mmol/L (3.5-5.1); SGOT/AST 26 U/L (17-59); SGPT/ALT 20 U/L (0-50); SODIUM 142 mmol/L (137-145); Total Protein 8.6 g/dL (6.3-8.2)
[2022-09-09 20:49] LABS: Amphetamine,Urine NEGATIVE (NEGATIVE); Barbiturate,Urine NEGATIVE (NEGATIVE); Cocaine,Urine NEGATIVE (NEGATIVE); Methadone,Urine NEGATIVE (NEGATIVE); Opiate,Urine NEGATIVE (NEGATIVE); PCP,Urine NEGATIVE (NEGATIVE); THC,Urine POSITIVE (NEGATIVE)
[2022-09-09] MEDS ORDERED: Abilify 10 MG PO SCH (22:00)
[2022-09-09 22:30] VITALS: BP 113/78; PULSE 99
[2022-09-09] MEDS ORDERED: Abilify 10 MG ONE (22:47)
== END 2022-09-09 23:00 | disposition home or self-care (01) ==
LOC: ED 19:46
DX: F34.1 Dysthymic disorder (principal); Z81.8 Family history of other mental and behavioral disorders; Z79.899 Other long term (current) drug therapy
CPT/HCPCS: 36415; 80053; 80307; 82077; 85025; 90791; 99284; Q3014; A9270-GY

== ENCOUNTER 2022-10-01 22:33 | Emergency (ER) | payer OTHER ==
[2022-10-02 01:54] LABS: BASOPHIL % 0.3 % (0.0-0.4); Basophil (Absolute #) 0.03 x10^3/uL (0-0.4); Eosinophil % 0.2 % (0.00-5.0); Eosinophil (Absolute #) 0.02 x10^3/uL (0-0.5); Hematocrit 44.8 % (42-50); Hemoglobin 15.3 g/dL (12.5-18.0); IMMATURE GRAN # 0.02 x10^3u/L (0.00-0.03); IMMATURE GRAN % 0.2 % (0.00-0.4); Lymphocyte (Absolute #) 1.58 x10^3/uL (1.0-4.6); Lymphocytes % 16.4 % (24.0-44.0); Mean Cell Volume 87.2 fL (78-100); Mean Corpuscular Hemoglobin 29.8 pg (26-32); Mean Corpuscular Hgb Concent. 34.2 g/dL (32-36); Mean Platelet Volume 9.7 fL (7.5-11.0); Monocytes % 6.2 % (0.0-12.0); Neutrophil % 76.7 % (36.0-66.0); Platelet Count 270 x10^3/uL (150-450); Red Blood Count 5.14 x10^6/uL (4.1-5.6); Red Cell Distribution Width 12.4 % (11.5-14.0); White Blood Count 9.7 x10^3/uL (4.0-10.5)
[2022-10-02 02:09] LABS: ACETAMINOPHEN < 10 ug/ml (10-30); ALBUMIN 5.1 g/dL (3.5-5.0); ALKALINE PHOSPHATASE 91 U/L (38-126); ANION GAP 19.4 MEQ/L (5-15); BLOOD UREA NITROGEN 13 mg/dL (9-20); CHLORIDE 106 mmol/L (98-107); Calcium 9.5 mg/dL (8.4-10.2); Carbon Dioxide 23 mmol/L (22-30); Creatinine 1 0.58 mg/dL (0.66-1.25); EST GLOMERULAR FILTRATION RATE > 60.0 ML/MIN; ETHYL ALCOHOL < 10 mg/dL (0-10); Glucose 107 mg/dL (74-106); Potassium 4.1 mmol/L (3.5-5.1); SALICYLATE < 1.0 mg/dL (2-20); SGOT/AST 27 U/L (17-59); SGPT/ALT 20 U/L (0-50); SODIUM 144 mmol/L (137-145); Total Protein 8.6 g/dL (6.3-8.2)
[2022-10-02 02:18] LABS: Amphetamine,Urine NEGATIVE (NEGATIVE); Barbiturate,Urine NEGATIVE (NEGATIVE); Benzodiazepine,Urine NEGATIVE (NEGATIVE); Cocaine,Urine NEGATIVE (NEGATIVE); Methadone,Urine NEGATIVE (NEGATIVE); Opiate,Urine NEGATIVE (NEGATIVE); PCP,Urine NEGATIVE (NEGATIVE); THC,Urine POSITIVE (NEGATIVE)
--- NOTE | 2022-10-02 02:27 | ERPHSYRPT ---
- History of Present Illness Time Seen by Provider: 10/02/22 02:27 Source: patient Exam Limitations: no limitations Patient Subjective Stated Complaint: night treviño, insomnia, pt's noticing that pt is being more rude to her, pt had an appt with [facility] outpati ent on thursday but patient missed appt d/t not feeling well, pt denies SI, HI, or harm to self, pt states "I would never kill myself, hurt anyone else, or harm myself with blades or anything like that." Triage Nursing Assessment: pt ambulatory to bed by self, pt alert and oriented x3, pt here for "behavorial problems", pt states he has been having nightmares causing insomnia, pt was recently seen in ER for behavorial problems and was set up for outpatient appt at [facility] that was scheduled for thursday, pt missed appt d/t not feeling well and has no rescheduled, pt denies SI, HI, or harm to self, pt has no noted self inflicted injuries upon examination. Physician History: Patient is a 22-year-old male presents to our ED for evaluation of insomnia. Patient states he has been experiencing nightmares particularly at night. Patient states the nightmares are interfering with the sleeping pattern. Patient has been feeling unwell throughout the day. Patient had an appointment with his psychiatrist but missed it yesterday because he was not feeling well. Patient has not taken his Abilify as he does not recall where he placed it. Patient states his has observed his more irritable behavior and advised him to come to the ED for an evaluation. Patient denies homicidal suicidal ideation. Patient denies ingesting any toxic substances. He otherwise feels well. Patient voices no other complaints or concerns at this time. Portions of this note were created with voice recognition technology. There may be grammatical, spelling, punctuation or sound alike errors Timing/Duration: today, day(s) (2 to 3 days) Severity of Symptoms-Max: moderate Severity of Symptoms-Current: mild Context related to: spouse Suicidal thoughts: other (No suicidal homicidal thoughts) Associated Symptoms: agitated, No suicidal ideation Previous symptoms: no prior history Allergies/Adverse Reactions: amphetamine [From Adderall] Allergy (Mild, Verified 10/02/22 01:32) dextroamphetamine [From Adderall] Allergy (Mild, Verified 10/02/22 01:32) diazepam [From Valium] Allergy (Verified 10/02/22 01:32) gluten Allergy (Verified 10/02/22:32) methylphenidate Allergy (Verified 10/02/22 01:32) naproxen Allergy (Verified 10/02/22 01:32) ondansetron [From Zofran] Allergy (Verified 10/02/22:32) Penicillins Allergy (Verified 10/02/22:32) ranitidine Allergy (Verified 10/02/22 01:32) Home Medications: Levetiracetam 500 MG/5 ML [Keppra 500 MG/5 ML] 500 mg PO DAILY 09/09/22 [History] Phenytoin Sod Extended 100 mg* [Dilantin 100 MG] 200 mg PO BID 09/09/22 [History] Hx Tetanus, Diphtheria Vaccination/Date Given: Yes Hx Influenza Vaccination/Date Given: Yes Hx Pneumococcal Vaccination/Date Given: No Immunizations Up to Date: Yes Travel Risk - International Travel Have you traveled outside of the country in past 3 weeks: No - Coronavirus Screening Are you exhibiting any of the following symptoms?: No Close contact with a COVID-19 positive Pt in past 14-21 Days: No - Vaccine Status Have you recieved a Covid-19 vaccination: No - Past Medical History Pertinent Past Medical History: Yes Neurological History: Seizures ENT History: No Pertinent History Cardiac History: No Pertinent History Respiratory History: No Pertinent History Endocrine Medical History: No Pertinent History Musculoskeletal History: No Pertinent History GI Medical History: No Pertinent History History: No Pertinent History Psycho-Social History: Anxiety, Depression Male Reproductive Disorders: No Pertinent History Other Medical History: psorsis, celiac disease - Past Surgical History Past Surgical History: Yes Neuro Surgical History: No Pertinent History Cardiac: No Pertinent History Respiratory: No Pertinent History Gastrointestinal: No Pertinent History Genitourinary: No Pertinent History Musculoskeletal: No Pertinent History Male Surgical History: No Pertinent History Other Surgical History: tendon stretch, hamstring stretches - Social History Smoking Status: Never smoker Exposure to second hand smoke: No Drug Use: marijuana Patient Lives Alone: No Significant Family History: no pertinent family hx - Review of Systems Constitutional: No Symptoms, No Fever, No Chills Eyes: No Symptoms Ears, Nose, & Throat: No Symptoms Respiratory: No Symptoms, No Cough, No Dyspnea Cardiac: No Symptoms, No Chest Pain, No Edema, No Syncope Abdominal/Gastrointestinal: No Symptoms, No Abdominal Pain, No Nausea, No Vomiting, No Diarrhea Genitourinary Symptoms: No Symptoms, No Dysuria Musculoskeletal: No Symptoms, No Back Pain, No Neck Pain Skin: No Symptoms, No Rash Neurological: No Symptoms, No Dizziness, No Focal Weakness, No Sensory Changes Psychological: No Symptoms Endocrine: No Symptoms Hematologic/Lymphatic: No Symptoms Immunological/Allergic: No Symptoms All Other Systems: Reviewed and Negative - Nursing Vital Signs Nursing Vital Signs: Initial Vital Signs Temperature 97.1 F 10/02/22 01:34 Pulse Rate 88 10/02/22 01:34 Respiratory Rate 18 10/02/22 01:34 Blood Pressure 127/87 10/02/22 01:34 O2 Sat by Pulse Oximetry 97 10/02/22 01:34 Pain Scale Pain Intensity 0 - Physical Exam General Appearance: no apparent distress Eyes, Ears, Nose, Throat Exam: normal ENT inspection, TMs normal, pharynx normal, moist mucous membranes Neck Exam: normal inspection, non-tender, supple, full range of motion Respiratory Exam: normal breath sounds, lungs clear, airway intact, No respiratory distress Cardiovascular Exam: regular rate/rhythm, normal heart sounds, normal peripheral pulses, No edema Gastrointestinal/Abdominal Exam: soft, No tenderness, No distention Extremities Exam: normal inspection, normal range of motion, No evidence of injury, No edema Current Suicidality: denies suicide plan Neurological Exam: alert, tool setter II-XII nml as tested, oriented x 3 Behavior/Eye Contact/Speech: alert & cooperative, cooperative, good eye contact Thoughts/Hallucinations: normal thought pattern, no apparent hallucination, obsessive Skin Exam: normal color, warm, dry, No rash SpO2 Interpretation: normal SpO2: 97 O2 Delivery: Room Air - Course Nursing assessment & vital signs reviewed: Yes Ordered Tests: Active Orders 24 hr Category Date Time Status Psychiatric Consult STAT Cons 10/02/22 04:15 Active ACETAMINOPHEN Stat Lab 10/02/22 01:52 Completed CBC W DIFF Stat Lab 10/02/22 01:52 Completed CMP Stat Lab 10/02/22 01:52 Completed ETHYL ALCOHOL Stat Lab 10/02/22 01:52 Completed SALICYLATE Stat Lab 04/20/23 01:52 Completed Urine Triage Profile Stat Lab 10/02/22 01:39 Completed Lab/Rad Data: Laboratory Result Diagrams 10/02/22 01:52 10/02/22 01:52 Laboratory Results 10/02/22 10/02/22 10/02/22 Range/Units 01:52 01:52 01:39 WBC 9.7 (4.0-10.5) x10^3/uL RBC 5.14 (4.1-5.6) x10^6/uL Hgb 15.3 (12.5-18.0) g/dL Hct 44.8 (42-50) % MCV 87.2 (78-100) fL MCH 29.8 (26-32) pg MCHC 34.2 (32-36) g/dL RDW 12.4 (11.5-14.0) % Plt Count 270 (150-450) x10^3/uL MPV 9.7 (7.5-11.0) fL Gran % 76.7 H (36.0-66.0) % Immature Gran % (Auto) 0.2 (0.00-0.4) % Nucleat RBC Rel Count 0.0 (0.00-0.1) % Eos # (Auto) 0.02 (0-0.5) x10^3/uL Immature Gran # (Auto) 0.02 (0.00-0.03) x10^3u/L Absolute Lymphs (auto) 1.58 (1.0-4.6) x10^3/uL Absolute Monos (auto) 0.60 (0.0-1.3) x10^3/uL Absolute Nucleated RBC 0.00 (0.00-0.01) x10^3u/L Lymphocytes % 16.4 L (24.0-44.0) % Monocytes % 6.2 (0.0-12.0) % Eosinophils % 0.2 (0.00-5.0) % Basophils % 0.3 (0.0-0.4) % Absolute Granulocytes 7.40 H (1.4-6.9) x10^3/uL Basophils # 0.03 (0-0.4) x10^3/uL Sodium 144 (137-145) mmol/L Potassium 4.1 (3.5-5.1) mmol/L Chloride 106 (98-107) mmol/L Carbon Dioxide 23 (22-30) mmol/L Anion Gap 19.4 H (5-15) MEQ/L BUN 13 (9-20) mg/dL Creatinine 0.58 L (0.66-1.25) mg/dL Estimated GFR > 60.0 ML/MIN Glucose 107 H (74-106) mg/dL Calcium 9.5 (8.4-10.2) mg/dL Total Bilirubin 0.50 (0.2-1.3) mg/dL AST 27 (17-59) U/L ALT 20 (0-50) U/L Alkaline Phosphatase 91 (38-126) U/L Serum Total Protein 8.6 H (6.3-8.2) g/dL Albumin 5.1 H (3.5-5.0) g/dL Salicylates < 1.0 L (2-20) mg/dL Urine Opiates Level NEGATIVE (NEGATIVE) Ur Methadone NEGATIVE (NEGATIVE) Acetaminophen < 10 L (10-30) ug/ml Urine Barbiturates NEGATIVE (NEGATIVE) Ur Phencyclidine (PCP) NEGATIVE (NEGATIVE) Urine Amphetamine NEGATIVE (NEGATIVE) U Benzodiazepine Level NEGATIVE (NEGATIVE) Urine Cocaine NEGATIVE (NEGATIVE) Urine Marijuana (THC) POSITIVE (NEGATIVE) Ethyl Alcohol < 10 (0-10) mg/dL - Progress Progress: improved Progress Note: 22-year-old male presents to our ED for evaluation of insomnia, nightmares medication noncompliance and agitation. Evaluation includes acetaminophen level aspirin level and alcohol level which were all negative. CBC CMP negative. Urine triage reveals marijuana use otherwise negative. We consulted [facility] for further evaluation and treatment. Patient was evaluated by Meggan Cpoeland. Per Meggan Copeland patient does not meet inpatient criteria. Recommendation to discharge patient home. Patient denies homicidal suicidal ideation. Patient agrees to continue his home medications as prescribed. He will follow-up at his next mental health appointment. Patient states he feels safe to go home. He agrees to comply with his safety plan. He voices no other complaints or concerns at this time. Portions of this note were created with voice recognition technology. There may be grammatical, spelling, punctuation or sound alike errors Patient's initial presentation was acute in nature. Physical exam nonremarkable. Complexity of problem addressed is low. Acute uncomplicated. No critical care time Complexity of data reviewed and analyzed is moderate. Laboratory work-up reviewed and analyzed by Dr. Brooks. Patient served as independent historian. Vital stable throughout his stay in our ED. Per [facility] recommendations patient will be discharged home. Patient agrees with plan of care. Patient feels much better. Patient agrees to comply with outpatient medication regimen, follow-up and safety plan. He voices no other complaints or concerns at this time. Risk of complication and or risk morbidity/mortality of patient management is minimal. Patient did not receive any medicinal management. Plan of care established via shared decision making. Time spent in discharge is approximately 10 minutes. Patient voices no other complaints or concerns at this time. Portions of this note were created with voice recognition technology. There may be grammatical, spelling, punctuation or sound alike errors 10/02/22 05:25 Counseled pt/family regarding: lab results, diagnosis, need for follow-up - Departure Departure Disposition: Home Clinical Impression: Noncompliance with medication regimen, Insomnia, Nightmares, Agitation, Marijuana use Condition: Stable Critical Care Time: No Referrals: MULUGETA BUCK MD [Primary Care Provider] - Follow up/PCP as directed Additional Instructions: Discharge/Care Plan RASHMI MASSEY was seen on 10/02/22 in the Emergency Room. The patient was counseled regarding Diagnosis,Lab results, Imaging studies, need for follow up and when to return to the Emergency Room. Prescriptions given: Discharge Note I have spoken with the patient and/or caregivers. I have explained the patient's condition, diagnosis and treatment plan based on the information available to me at this time. I have answered the patient's and/or caregiver's questions and addressed any concerns. The patient and/or caregivers have as good understanding of the patient's diagnosis, condition and treatment plan as can be expected at this point. The vital signs have been stable. The patient's condition is stable and appropriate for discharge from the emergency department. The patient will pursue further outpatient evaluation with the primary care physician or other designated or consulting physician as outlined in the discharge instructions. The patient and/or caregivers are agreeable to this plan of care and follow-up instructions have been explained in detail. The patient and/or caregivers have received these instruction. The patient/and or caregivers are aware that any significant change in condition or worsening of symptoms should prompt an immediate return to this or the closest emergency department or call 911.
[2022-10-02 05:41] VITALS: BP 111/59; PULSE 81; O2SAT 96
== END 2022-10-02 05:53 | disposition home or self-care (01) ==
LOC: ED 22:33
DX: G47.00 Insomnia, unspecified (principal); F51.5 Nightmare disorder; R45.1 Restlessness and agitation; Z91.148 Patient's other noncompliance with medication regimen for other reason; F12.90 Cannabis use, unspecified, uncomplicated; Z79.899 Other long term (current) drug therapy; Z28.310 Unvaccinated for COVID-19
CPT/HCPCS: 36415; 80053; 80143; 80179; 80307; 82077; 85025; 90791; 99284; Q3014